=== PATIENT | female | born 1955 | race Caucasian/White ===

== ENCOUNTER 2024-09-10 08:36 | Emergency (ER) | payer MEDICARE ==
[~2024-09-10] VITALS: Ht 160 cm; Wt 104.3 kg
[2024-09-10 09:14] LABS: BASOPHILS ABSOLUTE AUTO 0.04 K/mm3 (0.00-0.23); BASOPHILS PERCENT AUTO 0 % (0-2); EOSINOPHILS ABSOLUTE AUTO 0.12 K/mm3 (0.00-0.68); EOSINOPHILS PERCENT AUTO 1 % (0-6); Hematocrit 36.8 % (33.0-51.0); IMMATURE GRAN ABSOLUTE AUTO 0.05 K/mm3 (0.00-0.10); IMMATURE GRAN PERCENT AUTO 0 % (0-1); LYMPHOCYTES ABSOLUTE AUTO 0.93 K/mm3 (0.84-5.20); LYMPHOCYTES PERCENT AUTO 8 % (21-46); MONOCYTES ABSOLUTE AUTO 0.65 K/mm3 (0.16-1.47); MONOCYTES PERCENT AUTO 6 % (4-13); Mean Corpuscular HGB 25.3 pg (26.0-34.0); Mean Corpuscular HGB Conc 29.9 g/dL (31.5-36.5); Mean Corpuscular Volume 85 fL (80-100); Mean Platelet Volume 8.7 fL (9.1-12.4); NEUTROPHILS ABSOLUTE AUTO 9.79 K/mm3 (1.96-9.15); NEUTROPHILS PERCENT AUTO 85 % (41-73); Platelet Count 439 K/mm3 (150-400); RDW Coefficient Variation 15.6 % (11.7-14.2); RDW Standard Deviation 47.8 fL (35.1-46.3); Red Blood Cell Count 4.35 M/mm3 (3.80-5.20); White Blood Cell Count 11.58 K/mm3 (4.00-11.30)
[2024-09-10] MEDS ORDERED: Ipratropium/Albuterol SulF 2.5-0.5MG/3 ML Amp INH ONE (09:25)
[2024-09-10 09:33] LABS: Albumin, Blood 3.2 g/dL (3.4-5.0); Albumin/Globulin Ratio 0.9 (0.8-1.8); Bilirubin, Total 0.3 mg/dL (0.1-1.0); Bun/Creatinine Ratio 13.9 (12.0-20.0); Calcium, Blood 9.1 mg/dL (8.5-10.1); Creatinine, Blood 1.01 mg/dL (0.40-1.00); Globulin, Blood 3.5 g/dL (2.2-4.0); Potassium, Blood 4.2 mmol/L (3.5-5.5); Total Protein, Blood 6.7 g/dL (6.4-8.2)
[2024-09-10 10:24] LABS: Influenza A, PCR NEGATIVE (NEGATIVE); Influenza B, PCR NEGATIVE (NEGATIVE); Resp Syncytial Virus, PCR NEGATIVE (NEGATIVE); SARS-Cov-2 (COVID-19) PCR, MMC NEGATIVE (NEGATIVE)
[2024-09-10] MEDS ORDERED: Furosemide 10 MG / ML 2ML Vial IV ONE (10:35)
[2024-09-10] MEDS ORDERED: ALBU90OI INH (12:13)
[2024-09-10] MEDS ORDERED: OXYACE7.5T PO (12:13)
[2024-09-10] MEDS ORDERED: FURO40 PO (12:13)
== END 2024-09-10 13:00 | disposition home or self-care (01) ==
LOC: ER 08:36
PROVIDERS: Student in an Organized Health Care Education/Training Program
DX: I11.0 Hypertensive heart disease with heart failure (principal); I50.9 Heart failure, unspecified; J44.1 Chronic obstructive pulmonary disease with (acute) exacerbation; M54.9 Dorsalgia, unspecified; G89.29 Other chronic pain; E11.51 Type 2 diabetes mellitus with diabetic peripheral angiopathy without gangrene; I87.2 Venous insufficiency (chronic) (peripheral); M06.9 Rheumatoid arthritis, unspecified; Z87.891 Personal history of nicotine dependence; Z98.1 Arthrodesis status; Z88.0 Allergy status to penicillin; Z79.891 Long term (current) use of opiate analgesic
CPT/HCPCS: 0241U; 71046; 80053; 83880; 84484; 85025; 93005; 93010; 93970; 94640; 94664; 96374; 99285-25; J1940

== ENCOUNTER 2024-10-15 19:34 | Inpatient (IN) | payer MEDICARE ==
[~2024-10-15] VITALS: Ht 160 cm; Wt 92.0 kg
[~2024-10-15 19:34] MED LIST: ALBU90OI INH; FURO40 PO; OXYACE7.5T PO
[2024-10-15 21:42] LABS: BASOPHILS ABSOLUTE AUTO 0.09 K/mm3 (0.00-0.23); BASOPHILS PERCENT AUTO 1 % (0-2); EOSINOPHILS ABSOLUTE AUTO 0.04 K/mm3 (0.00-0.68); EOSINOPHILS PERCENT AUTO 0 % (0-6); Hematocrit 36.4 % (33.0-51.0); Hemoglobin 10.8 g/dL (11.5-16.0); IMMATURE GRAN ABSOLUTE AUTO 0.09 K/mm3 (0.00-0.10); IMMATURE GRAN PERCENT AUTO 1 % (0-1); LYMPHOCYTES PERCENT AUTO 6 % (21-46); MONOCYTES ABSOLUTE AUTO 1.84 K/mm3 (0.16-1.47); MONOCYTES PERCENT AUTO 11 % (4-13); Mean Corpuscular HGB 24.7 pg (26.0-34.0); Mean Corpuscular HGB Conc 29.7 g/dL (31.5-36.5); Mean Corpuscular Volume 83 fL (80-100); Mean Platelet Volume 8.5 fL (9.1-12.4); NEUTROPHILS ABSOLUTE AUTO 14.42 K/mm3 (1.96-9.15); NEUTROPHILS PERCENT AUTO 83 % (41-73); Platelet Count 488 K/mm3 (150-400); RDW Coefficient Variation 16.3 % (11.7-14.2); RDW Standard Deviation 49.6 fL (35.1-46.3); Red Blood Cell Count 4.37 M/mm3 (3.80-5.20); White Blood Cell Count 17.48 K/mm3 (4.00-11.30)
[2024-10-15 21:59] LABS: Albumin, Blood 2.6 g/dL (3.4-5.0); Albumin/Globulin Ratio 0.6 (0.8-1.8); Bilirubin, Total 0.3 mg/dL (0.1-1.0); Bun/Creatinine Ratio 26.9 (12.0-20.0); Calcium, Blood 9.3 mg/dL (8.5-10.1); Creatinine, Blood 1.6 mg/dL (0.40-1.00); Globulin, Blood 4.6 g/dL (2.2-4.0); Potassium, Blood 4.7 mmol/L (3.5-5.5); Total Protein, Blood 7.2 g/dL (6.4-8.2)
[2024-10-15 23:22] LABS: Source, Urine Fem Cath
[2024-10-15 23:25] LABS: Bilirubin, Urine Neg (Neg); Blood, Urine 3+ (Neg); Glucose Qualitative, Urine Neg (Neg); Ketones, Urine Neg (Neg); Leukocyte Esterase, Urine 3+ (Neg); Nitrite, Urine Pos (Neg); Protein, Urine 3+ (Neg); Urobilinogen, Urine NORM (Normal)
[2024-10-15 23:31] LABS: Appearance, Urine Turbid (Clear)
[2024-10-15 23:34] LABS: Bacteria Many /hpf; Red Blood Cells, Urine 0-2 /hpf (0-2); Squamous Epithelial Cells Few /hpf (Few); White Blood Cells, Urine TNTC /hpf (0-5)
[2024-10-15 23:35] LABS: Color, Urine Other (P-Yellow)
[2024-10-16] MEDS ORDERED: NS 1,000 ML IV SCH ×2 (00:10→00:40)
[2024-10-16] MEDS ORDERED: Cefepime HCl 2,000 MG in NS 100 ML IV ONE (00:10)
[2024-10-16] MEDS ORDERED: Vancomycin HCL 2,000 MG in NS 500 ML IV ONE (00:40)
[2024-10-16] MEDS ORDERED: Acetaminophen 325 MG TABLET PO PRN (00:40)
[2024-10-16] MEDS ORDERED: Ondansetron HCl 2 MG / ML 2ML Vial IV PRN (00:40)
[2024-10-16] MEDS ORDERED: FLU VACC TS2024-25(6MOS UP)/PF 45 MCG/0.5 ML SYRINGE IM ONE (00:40)
[2024-10-16] MEDS ORDERED: FentaNYL Citrate 50 MCG/ML 2 ML Injection IV PRN (00:45)
[2024-10-16] MEDS ORDERED: Albumin (Human) 25gm/100ml 100 ML IV ONE (02:05)
[2024-10-16] MEDS ORDERED: Sodium Phosphate 30 MM in Dextrose 5% 500 ML IV STA (02:09)
[2024-10-16] MEDS ORDERED: Nystatin 100,000 Units/GM Powder 15 gm TOP PRN (02:15)
[2024-10-16 03:19] LABS: Influenza A, PCR NEGATIVE (NEGATIVE); Influenza B, PCR NEGATIVE (NEGATIVE); Resp Syncytial Virus, PCR NEGATIVE (NEGATIVE); SARS-Cov-2 (COVID-19) PCR, MMC NEGATIVE (NEGATIVE)
[2024-10-16] MEDS ORDERED: Enoxaparin 40 MG/0.4 ML SYR SC SCH (09:00)
[2024-10-16] MEDS ORDERED: Ipratropium/Albuterol SulF 2.5-0.5MG/3 ML Amp INH PRN (09:30)
[2024-10-16 10:56] LABS: BASOPHILS ABSOLUTE AUTO 0.05 K/mm3 (0.00-0.23); BASOPHILS PERCENT AUTO 0 % (0-2); EOSINOPHILS ABSOLUTE AUTO 0.03 K/mm3 (0.00-0.68); EOSINOPHILS PERCENT AUTO 0 % (0-6); IMMATURE GRAN ABSOLUTE AUTO 0.07 K/mm3 (0.00-0.10); IMMATURE GRAN PERCENT AUTO 0 % (0-1); LYMPHOCYTES ABSOLUTE AUTO 0.99 K/mm3 (0.84-5.20); LYMPHOCYTES PERCENT AUTO 6 % (21-46); MONOCYTES ABSOLUTE AUTO 1.75 K/mm3 (0.16-1.47); MONOCYTES PERCENT AUTO 11 % (4-13); Mean Corpuscular HGB 24.7 pg (26.0-34.0); Mean Corpuscular Volume 82 fL (80-100); Mean Platelet Volume 8.8 fL (9.1-12.4); NEUTROPHILS ABSOLUTE AUTO 12.81 K/mm3 (1.96-9.15); NEUTROPHILS PERCENT AUTO 82 % (41-73); Platelet Count 437 K/mm3 (150-400); RDW Coefficient Variation 16.2 % (11.7-14.2); RDW Standard Deviation 49.6 fL (35.1-46.3); Red Blood Cell Count 3.64 M/mm3 (3.80-5.20)
[2024-10-16 11:55] LABS: Albumin, Blood 2.7 g/dL (3.4-5.0); Albumin/Globulin Ratio 0.7 (0.8-1.8); Bilirubin, Total 0.3 mg/dL (0.1-1.0); Bun/Creatinine Ratio 27.5 (12.0-20.0); Calcium, Blood 8.5 mg/dL (8.5-10.1); Creatinine, Blood 1.31 mg/dL (0.40-1.00); Globulin, Blood 3.7 g/dL (2.2-4.0); Potassium, Blood 3.7 mmol/L (3.5-5.5); Total Protein, Blood 6.4 g/dL (6.4-8.2)
[2024-10-16] MEDS ORDERED: CefTRIAXone Sodium 1,000 MG in NS 100 ML IV SCH (12:00)
--- NOTE | 2024-10-16 14:27 | NUR ---
RECIEVED REPORT FROM EPI
--- NOTE | 2024-10-16 18:54 | NUR ---
SHIFT SUMMARY PT AOX4, COOPERATIVE, ABLE TO MAKE NEEDS KNOWN. PT ARRIVED ON FLOOR APPROXIMATELY 1500. PT IS HARD OF HEARING. NEEDS MED REC COMPLETED, WILL PASS OFF TO JUNIOR ACCOUNTANT. PT HAS HARD TIME TURNING IN BED DUE TO "FEAR OF FALLING ALL BED RESULTING IN PTSD." EKG WASA PERFORMED PER IMPLEMENTATION LEAD, IN PAPER CHART. PURE WICK ACTIVE. MULTIPLE SKIN PROBLEMS NOTED. 2ND RN WAS KAREN BAILEY, AND PICS ARE IN CHART. BED IN LOWEST POSITION, CALL LIGHT WITHIN REACH.
[2024-10-16 20:20] VITALS: BP 162/62
[2024-10-16] MEDS ORDERED: Miconazole Nitrate 2% 85 GM PWD TOP PRN (20:35)
[2024-10-16] MEDS ORDERED: Insulin Human Lispro 100 Units/ML 3ML Syringe SC SCH (21:00)
[2024-10-16] MEDS ORDERED: POTA10T PO (21:16)
[2024-10-16] MEDS ORDERED: FERSU300 PO (21:17)
[2024-10-16] MEDS ORDERED: LEFL20 PO (21:17)
[2024-10-16] MEDS ORDERED: METF500 PO (21:18)
[2024-10-16] MEDS ORDERED: METO25ER PO (21:18)
[2024-10-16] MEDS ORDERED: ATOR10 PO (21:18)
[2024-10-16] MEDS ORDERED: GLIP5 PO (21:19)
[2024-10-16] MEDS ORDERED: SERT50 PO (21:19)
[2024-10-16] MEDS ORDERED: VERA240ER PO (21:21)
[2024-10-16] MEDS ORDERED: PARO20 PO (21:22)
[2024-10-16] MEDS ORDERED: OMEP20ER PO (21:22)
[2024-10-16] MEDS ORDERED: ZYRTEC10 M2 PO (21:23)
[2024-10-16] MEDS ORDERED: VALS80 PO (21:23)
[2024-10-16] MEDS ORDERED: BUDESONIDE0.5 MG/2 M INH (21:23)
[2024-10-16] MEDS ORDERED: FOLI1 PO (21:24)
[2024-10-16 23:24] VITALS: BP 138/71
[2024-10-17 03:54] VITALS: BP 136/60
[2024-10-17 05:13] LABS: Hematocrit 29.7 % (33.0-51.0); Hemoglobin 8.9 g/dL (11.5-16.0); Mean Corpuscular HGB 24.6 pg (26.0-34.0); Mean Corpuscular Volume 82 fL (80-100); Mean Platelet Volume 8.6 fL (9.1-12.4); Platelet Count 420 K/mm3 (150-400); RDW Coefficient Variation 16.2 % (11.7-14.2); RDW Standard Deviation 48.9 fL (35.1-46.3); Red Blood Cell Count 3.62 M/mm3 (3.80-5.20); White Blood Cell Count 10.65 K/mm3 (4.00-11.30)
[2024-10-17 05:37] LABS: Albumin, Blood 2.2 g/dL (3.4-5.0); Anion Gap 9 mmol/L (3-11); Blood Urea Nitrogen 27 mg/dL (8-24); Bun/Creatinine Ratio 27.9 (12.0-20.0); CO2, Blood 22 mmol/L (21-32); Calcium, Blood 8.6 mg/dL (8.5-10.1); Chloride, Blood 112 mmol/L (98-108); Creatinine, Blood 0.97 mg/dL (0.40-1.00); Glomerular Filtration Rate 63 (60-); Glucose, Blood 100 mg/dL (70-99); Phosphorus, Blood 3.6 mg/dL (2.5-4.9); Potassium, Blood 3.4 mmol/L (3.5-5.5); Sodium, Blood 140 mmol/L (136-145)
--- NOTE | 2024-10-17 06:41 | NUR ---
Shift Summary Pt is AOx4, here for Sepsis r/t skin infections and UTI. Pt has significant skin breakdown on BLE, dressing placed are C/D/I. I called the hospitalist for wound care orders but he wanted pt's day shift doctor to examine her many wounds and put in the orders today. No c/o of pain. Pt is very wheezy and tachypneic ~28 bpm, I called RT to request a breathing treatment this AM. Pt also appears to gasp constantly in her sleep and sometimes while awake. She states this is normal for her.
[2024-10-17 08:11] VITALS: BP 102/74
[2024-10-17] MEDS ORDERED: NS 250 ML IV PRN (12:20)
--- NOTE | 2024-10-17 12:23 | NUR ---
Spiritual Care Visit. Pt. is awake and welcomed my visit. Pt. is pleasant. Facilitated a life review and considered matters of jayden and belief. Pt. verbalized that she is new to the area and is in need of a PCP. Prayed with the Pt. Pt. verbalized gratitude for the spiritual care visit and welcomed this dust control engineer to return.
[2024-10-17 13:13] VITALS: BP 178/78
[2024-10-17] MEDS ORDERED: OxyCODONE 7.5 mg/Acetam 325 mg TABLET PO PRN (13:55)
[2024-10-17] MEDS ORDERED: Azithromycin 250 MG Tab PO SCH (14:00)
[2024-10-17] MEDS ORDERED: Potassium Chloride 10 Meq Tablet SA PO SCH (14:00)
[2024-10-17] MEDS ORDERED: Albuterol HFA200 ACT/6.7 GM INH INH PRN (14:05)
[2024-10-17] MEDS ORDERED: Budesonide 0.5 MG/2 ML RESP INH SCH (14:05)
[2024-10-17 17:27] VITALS: BP 153/69
--- NOTE | 2024-10-17 17:57 | NUR ---
SHIFT SUMMARY PT AOX4, COOPERATIVE, ABLE TO MAKE NEEDS KNONW. PT HAS REMAINED IN BED FOR DURATION OF SHIFT. PURE WICK ACTIVE. ON ROOM AIR, IV PATENT. PERFORMED WOUND CARE PER ORDER. INFORMED SLASHER RUNNER SHOULD WORK WITH THERAPY TOMORROW. CONFISCATED VAPING DEVICE FROM PT, IN LOCKBOX. BED IN LOWEST POSITION, CALL LIGHT WITHIN REACH.
[2024-10-17 20:09] VITALS: BP 128/56
[2024-10-17] MEDS ORDERED: Verapamil HCL 240 MG TABCR PO SCH (21:00)
[2024-10-17 23:15] VITALS: BP 134/69
[2024-10-18 04:50] LABS: BASOPHILS ABSOLUTE AUTO 0.04 K/mm3 (0.00-0.23); BASOPHILS PERCENT AUTO 0 % (0-2); EOSINOPHILS ABSOLUTE AUTO 0.34 K/mm3 (0.00-0.68); EOSINOPHILS PERCENT AUTO 3 % (0-6); Hematocrit 30.7 % (33.0-51.0); Hemoglobin 9.1 g/dL (11.5-16.0); IMMATURE GRAN ABSOLUTE AUTO 0.19 K/mm3 (0.00-0.10); IMMATURE GRAN PERCENT AUTO 2 % (0-1); LYMPHOCYTES ABSOLUTE AUTO 1.27 K/mm3 (0.84-5.20); LYMPHOCYTES PERCENT AUTO 12 % (21-46); MONOCYTES PERCENT AUTO 12 % (4-13); Mean Corpuscular HGB 24.3 pg (26.0-34.0); Mean Corpuscular HGB Conc 29.6 g/dL (31.5-36.5); Mean Corpuscular Volume 82 fL (80-100); Mean Platelet Volume 8.5 fL (9.1-12.4); NEUTROPHILS ABSOLUTE AUTO 7.25 K/mm3 (1.96-9.15); NEUTROPHILS PERCENT AUTO 71 % (41-73); Platelet Count 420 K/mm3 (150-400); Red Blood Cell Count 3.75 M/mm3 (3.80-5.20); White Blood Cell Count 10.29 K/mm3 (4.00-11.30)
[2024-10-18 05:06] LABS: Bun/Creatinine Ratio 20.1 (12.0-20.0); Calcium, Blood 8.7 mg/dL (8.5-10.1); Creatinine, Blood 0.9 mg/dL (0.40-1.00); Potassium, Blood 3.2 mmol/L (3.5-5.5)
[2024-10-18 05:19] VITALS: BP 114/48
--- NOTE | 2024-10-18 05:30 | NUR ---
SHIFT SUMMARY: PT AOX4, NISQUALLY SOME CONFUSION, EASILY REORIENTED. WOUNDS WERE CDI, WOUNDS UNDER BREASTS FUNGAL POWDER USED. PT EXPERIENCING SOME PAIN, MEDICATED PER EMR. PT PLEASANT AND COOPERATIVE IN CARE. PURE WICK IN PLACE DUE TO EXCORIATION ON BOTTOM AND RODO AREA. HAVING GOOD OUTPUT. TOLERATING MEDICATIONS WELL. NO ACUTE EVENTS OVERNIGHT. PT RESTING IN BED, BED IN LOWEST POSITION, CALL LIGHT IN REACH. CONTINUING CARE.
[2024-10-18] MEDS ORDERED: Omeprazole 20 MG CapCR PO SCH (06:00)
[2024-10-18 08:01] VITALS: BP 129/58
[2024-10-18] MEDS ORDERED: Losartan Potassium 50 MG Tab PO SCH (09:00)
[2024-10-18] MEDS ORDERED: Ferrous Sulfate 325 MG Tab PO SCH (09:00)
[2024-10-18] MEDS ORDERED: Metoprolol Succinate 25 MG TABCR PO SCH (09:00)
[2024-10-18] MEDS ORDERED: Furosemide 40 MG Tab PO SCH (09:00)
[2024-10-18] MEDS ORDERED: PARoxetine HCl 20 MG Tab PO SCH (09:00)
[2024-10-18] MEDS ORDERED: Sertraline HCl 50 MG Tab PO SCH (09:00)
[2024-10-18] MEDS ORDERED: Atorvastatin 10 MG Tab PO SCH (09:00)
[2024-10-18] MEDS ORDERED: Loratadine 10 MG Tab PO SCH (09:00)
[2024-10-18] MEDS ORDERED: Potassium Chloride 10 Meq Tablet SA PO SCH (11:00)
[2024-10-18] MEDS ORDERED: Fluconazole 100 MG Tab PO ONE (12:20)
[2024-10-18] MEDS ORDERED: Miconazole Nitrate 2% 85 GM PWD TOP SCH (14:00)
--- NOTE | 2024-10-18 15:30 | NUR ---
REVIEWED GUM PULLER DOCUMENTATION; MADE EDITS TO ASSESSMENTS APPROPRIATELY AND GAVE REASON OR REASSESSED PRIOR TO CHANGES.
[2024-10-18 15:36] VITALS: BP 108/63
--- NOTE | 2024-10-18 16:49 | NUR ---
SHIFT SUMMARY: PATIENT IS A&OX4, PLEASANT AND COOPERATIVE WITH CARE,TWO PERSON MAX ASSIST WITH CARE/BEDREST; PENDING PT/OT EVALUATION. UNABLE TO GET EVALUATED TODAY;WILL ATTEMPT AGAIN TOMORROW 10/19/24. PATIENT RECEIVING IV ANTIBIOTICS; POSITIVE E COLI URINE CULTURE. PATIENT USING PUREWICK SYSTEM FOR URINARY INCONTINENCE. WOUND CARE PERFORMED ON PATIENT THIS AFTERNOON; AREAS CLEANSED AND DRESSED/TREATED: BOTTOM(R SIDE), INNER THIGHS, UNDER BREASTS, ARMPITS, AND BLE. PATIENT IN BED, CALL LIGHT WITHIN REACH, NO SIGNS OR SYMPTOMS OF DISTRESS, NO EVENTS ON TELE, PLAN OF CARE ONGOING.
[2024-10-18 19:42] VITALS: BP 104/58
[2024-10-19 04:13] VITALS: BP 111/53
--- NOTE | 2024-10-19 04:54 | NUR ---
SHIFT SUMMARY: PT AOX4 WITH SOME CONFUSION, EASILY REDIRECTABLE ABLE TO MAKE NEEDS KNOWN AND CALLS APPROPRIATELY. PT TOLERATING MEDICATIONS WELL AND ALLOWING SOME TURNS BUT REFUSING OTHERS. DURING A BRIEF CHANGE, TOWER SUPERVISOR FOUND A VAPE IN THE BED. PT EDUCATED ONTHE POLICY AND VAPE PLACED IN DRAWER OUTSIDE. PAIN MANAGED WELL PER EMR. PT PLEASANT AND IN GOOD MOOD. ANXIOUS ABOUT SEEING CASE MGMT AND PT/OT. NO ACUTE EVENTS OVERNIGHT. PT IN BED SLEEPING, CALL LIGHT IN REACH, CONTINUING CARE.
[2024-10-19 05:28] LABS: Bun/Creatinine Ratio 22.1 (12.0-20.0); Calcium, Blood 8.6 mg/dL (8.5-10.1); Creatinine, Blood 0.95 mg/dL (0.40-1.00); Potassium, Blood 3.7 mmol/L (3.5-5.5)
[2024-10-19 07:31] VITALS: BP 99/57
[2024-10-19] MEDS ORDERED: Losartan Potassium 25 MG Tab PO SCH (09:00)
[2024-10-19 10:04] VITALS: BP 122/61
[2024-10-19] MEDS ORDERED: Morphine Sulfate 4 MG/1 ML Injection IV PRN (13:55)
[2024-10-19] MEDS ORDERED: Magnesium Hydroxide Conc 10 ML UDC PO PRN (13:55)
[2024-10-19] MEDS ORDERED: Bisacodyl 10 MG Supp PR PRN (13:55)
[2024-10-19] MEDS ORDERED: Clarify Drug Order XX ONE (14:05)
--- NOTE | 2024-10-19 16:25 | NUR ---
Spiritual Care Visit. With evidence of great faheem the Pt. welcomed my visit. Pt. verbalized that she had hoped I would visit. Facilitated an update. Pt. verbalized a hope that she would be discharged after her sepsis clears. Pt. displayed evidence of wanting more spiritual growth opportunities after discharge and she is excited to visit a local islam. Prayed with the Pt. Pt. verbalized gratitude for the spiritual life visit.
[2024-10-19 19:22] VITALS: BP 128/81
--- NOTE | 2024-10-19 19:43 | NUR ---
no acute changes this shift. bed bath given and wound care provided as ordered. treated pain per emar. bed rest with q 2hour turns, pt requires assistance with turning. alert and oriented x4, able to express needs. plan for patient to go home with home health. pt is set up for new pcp appointment 10/25. unable to start home health until then.
[2024-10-19] MEDS ORDERED: Sennosides 8.6 MG Tab PO SCH (21:00)
[2024-10-19] MEDS ORDERED: Docusate Sodium 100 MG Cap PO SCH (21:00)
[2024-10-20 01:28] VITALS: BP 112/51
[2024-10-20 03:48] VITALS: BP 123/59
--- NOTE | 2024-10-20 04:40 | NUR ---
SHIFT SUMMARY: PT AOX4 WITH SOME CONFUSION. EASILY REORIENTED. SLEPT WELL THROUGH THE NIGHT, CLAIMS FEELING FATIGUED. WOUND DRESSINGS CDI. PAIN MEDICATED PER EMR. PT COMFORTABLE IN BED AND REFUSED TURNS MOST OF THE NIGHT. PLEASANT MOOD AND AFFECT, COOPERATIVE IN CARE. NO ACUTE EVENTS OVERNIGHT. PT IN BED RESTING, BED IN LOWEST POSITION, CALL LIGHT IN REACH. CONTINUING CARE.
[2024-10-20 07:10] VITALS: BP 107/63
[2024-10-20 15:22] VITALS: BP 137/65
--- NOTE | 2024-10-20 17:06 | NUR ---
SHIFT SUMMARY: PATIENT IS A&PX4/2 PERSON ASSIST, SHE DID WORK WITH PHYSICAL THERAPY TODAY AND WAS ABLE TO SIT AT EDGE OF BED AND STAND. PATIENT IS NOW OPEN TO GOING TO A SNF AFTER TODAY. MENTIONED TODAY WOUND CARE TO THE PATIENT AND SHE REQUESTED THAT IT BE DONE THIS EVENING DUE IT BEING DONE LATER IN THE DAY YESTERDAY. PATIENT COTINUES TO C/O PAIN IN HER LOWER EXTREMITIES. SHE IS IN BED, SLEEPING, RESPIRATIONS EVEN AND UNLABORED, CALL LIGHT WITHIN REACH, NO SIGNS OR SYMPTOMS OF DISTRESS, PLAN OF CARE ONGOING. INFORMATION ON PCP'S PROVIDED TO THE PATIENT TO LOOK FOR A PCP.
--- NOTE | 2024-10-20 19:13 | NUR ---
WOUND CARE AND DRESSING CHANGES COMPLETED ON BOTTOM (R) AND INNER THIGHS.
[2024-10-20 20:19] VITALS: BP 119/72
[2024-10-20 23:38] VITALS: BP 127/66
[2024-10-21] MEDS ORDERED: HydrOXYzine Pamoate 50 MG Cap PO PRN (02:15)
--- NOTE | 2024-10-21 03:15 | NUR ---
SURVEY QUESTIONNAIRE DESIGNER SUMMARY: PT A&O X4. MAKES NEEDS KNOWN. MEDICATED X2 WITH PRN PAIN MEDS PER EMAR ORDERS. NEW ORDER OBTAINED FOR OBSERVED ITCHING. 2 PERSON ASSIST WITH BED MOBILITY. NO ACUTE EVENTS T/O SHIFT. CALL LIGHT IN REACH. CARES ONGOING ORDERED.
[2024-10-21 03:56] VITALS: BP 109/63
[2024-10-21 07:56] VITALS: BP 135/53
[2024-10-21] MEDS ORDERED: CeFAZolin Sodium 2,000 MG in NS 100 ML IV SCH (08:05)
[2024-10-21] MEDS ORDERED: MetFORMIN HCl 500 mg PO SCH (17:00)
--- NOTE | 2024-10-21 19:04 | NUR ---
assumed care of pt a/o x 4 makes needs known call light within reach. uneventful today, spoke with pt several times about turning a pt refused to turn to one side or another, pt stated she was too afraid too fall off the bed, even with assurences she would not allow me to move her or even dangle at bedside. pt did allow me to change dressing to lower extremities, changed per orders. charge nurse and aid helped change and turn pt once i was not in room. pt is aware that she might be discharged tomorrow and states she is looking forward to rehab and getting chely
[2024-10-21 20:31] VITALS: BP 82/52
[2024-10-21 21:36] VITALS: BP 115/69
[2024-10-22 00:18] VITALS: BP 127/85
[2024-10-22 03:45] VITALS: BP 102/54
--- NOTE | 2024-10-22 03:46 | NUR ---
CLINICAL SERVICES SPECIALIST SUMMARY: PT A&O X4, MAKES NEEDS KNOWN. NO ACUTE CHANGES / DISTRESS NOTED T/O SHIFT. 2 PERSON ASSIST WITH BED MOBILITY, TURN Q2H SCHEDULE IN PLACE. PT TO D/C TO SNF TUESDAY. CALL LIGHT IN REACH. CARES CONTINUE ORDERED.
[2024-10-22 05:23] LABS: Bun/Creatinine Ratio 17.3 (12.0-20.0); Calcium, Blood 8.6 mg/dL (8.5-10.1); Creatinine, Blood 1.04 mg/dL (0.40-1.00); Potassium, Blood 3.8 mmol/L (3.5-5.5)
[2024-10-22 07:19] VITALS: BP 143/71
[2024-10-22] MEDS ORDERED: OxyCODONE 10/Acetamin 325 TABLET PO PRN (09:30)
[2024-10-22 16:04] VITALS: BP 124/57
[2024-10-22 19:13] VITALS: BP 150/69
[2024-10-22 23:26] VITALS: BP 117/67
[2024-10-23 04:37] VITALS: BP 124/59
--- NOTE | 2024-10-23 05:10 | NUR ---
SHIFT SUMMARY: PT A&OX4. NO ACUTE EVENTS T/O SHIFT. X1 ASSIST. ON RA. MEDICATED X1 FOR PAIN PER EMAR ORDERS; EFFECTIVE. BED IN LOWEST POSITION. CALL LIGHT IN REACH. CARES ON GOING ORDERED/
[2024-10-23 07:18] VITALS: BP 135/66
--- NOTE | 2024-10-23 15:19 | NUR ---
Spiritual Care Visit. Pt. is awake in bed when she welcomed my visit. Pt. displayed evidence of being in great discomfort, and requestedthis production artist to notify her nurse. Prayed for Pt. Pt. verbalized gratitude for the spiritual care support. Pt. verbalized that she has been helped. Notified the attending nurse.
[2024-10-23 16:02] VITALS: BP 145/61
--- NOTE | 2024-10-23 18:41 | NUR ---
SUMMARY- AAOX3-4. FORGETFUL. X1-2 ASSIST.PAIN WELL CONTROLLED WITH EMAR MEDS. PT ON RA. ALL WOUND DRESSINGS CHANGED THIS SHIFT PER ORDER.
[2024-10-23 21:35] VITALS: BP 113/68
[2024-10-24 00:41] VITALS: BP 110/46
--- NOTE | 2024-10-24 04:54 | NUR ---
SHIFT SUMMARY ADMITTED FOR BLE WOUNDS/SEPSIS. FULL CODE. IV ANTIB ARE SCHEDULED. PLAN IS FOR DC TO SNF, FOLLOWING INSURANCE AUTHORIZATION. TELEMETRY: NSR @ 81 BPM. DAILY AND PRN DRESSING CHANGES. BLE WOUNDS, THIGH WOUND, EXCORIATED SKIN UNDER BREASTS AND IN ARMPITS. A&O X2-3, AT NIGHT. ACHS CBG'S - LOW SS. 1 ASSIST TO BSC - MOVES SLOWLY.
[2024-10-24 05:42] VITALS: BP 148/68
[2024-10-24 08:05] VITALS: BP 139/76
[2024-10-24 11:57] VITALS: BP 94/60
[2024-10-24 16:21] VITALS: BP 101/54
--- NOTE | 2024-10-24 17:53 | NUR ---
NO ACUTE CHANGES THIS SHIFT. PT HAS BEEN DROWSY BUT AROUSABLE. SHE STATES THAT SHE DID NOT GET MUCH SLEEP LAST NIGHT. PT UP TO SHOWER TODAY AND UP IN CHAIR FOR LUNCH. TOLORATED WELL. WOUND CARE PROVIDED ORDERED. TREATED BACK PAIN AND BLE PAIN PER EMAR. 1 ASSIST WITH FWW. ABLE TO EXPRESS NEEDS
[2024-10-24 19:58] VITALS: BP 118/60
[2024-10-25 00:17] VITALS: BP 89/58
--- NOTE | 2024-10-25 04:24 | NUR ---
SHIFT SUMMARY ADMITTED FOR BLE WOUNDS/SEPSIS. FULL CODE. IV ANTIB RX. PLAN IS FOR DC TO SNF WHEN INSURANCE AUTHORIZES. SKIN EXCORIATIONS AND BLE WOUNDS ARE IMPROVING. DAILY AND PRN DRESSING CHANGES. SHE IS A&O X2-3, AT NIGHT. ON RA. ADA DIET. ACHS CBG'S - LOW SS. TELEMETRY: NSR @ 72 BPM. 1 ASSIST TO BSC.
[2024-10-25 04:28] VITALS: BP 104/86
[2024-10-25 08:02] VITALS: BP 111/67
--- NOTE | 2024-10-25 14:28 | NUR ---
Spiritual Care Visit. Pt. is awake and is sitting up in bed when she welcomes my visit. Facilitate a progress update. Pt. verbalizes an expectation to be discharged to a SNF either today or tomorrow. Transport Manager Annette came into the room and confrimed the Pts. expectation. Consdiered matters of jayden and [facility]. Pt. did display some mild confusion at times. Prayed with Pt. Pt. verbalized gratitude for all of the spiritual care support.
--- NOTE | 2024-10-25 18:08 | NUR ---
NO ACUTE CHANGES THIS SHIFT. PT ABLE TO EXPRESS NEEDS. 1 ASSIST WITH FWW TO CHAIR. UP FOR MEALS. PT PAIN TREATED PER EMAR. PT REFUSED WOUND CARE THIS SHIFT. EDUCATION PROVIDED ON IMPORTANCE OF KEEPING WOUND CARE SCHEDULE. PT VERBALIZED UNDERSTANDING, PT STATES THAT SHE WOULD CONSIDER WOUND CARE THIS EVENING. WILL REPORT THIS TO NOC RN. PT D/C TO SNF PENDING AUTH.
[2024-10-25 19:40] VITALS: BP 106/70
[2024-10-26 03:43] VITALS: BP 108/56
[2024-10-26 07:39] VITALS: BP 113/70
--- NOTE | 2024-10-26 12:39 | NUR ---
PALLIATIVE CARE NOTE: DISCUSSED SYMPTOM MANAGEMENT WITH PATIENT TODAY. SHE STATED SHE FEELS LIKE SHE IS GOING THROUGH NICOTINE WITHDRAWALS ALTHOUGH SHE QUIT SMOKING A FEW YEARS AGO. SHE WANTS TO KNOW IF SHE CAN HAVE A NICOTINE PATCH TO HELP WITH HER ANXIETY SHE IS FEELING. WILL NOTIFY MD OF PT REQUEST. PATIENT GOT A TEXT MESSAGE IN THE MIDDLE OF OUR CONVERSATION AND REQUESTED THIS RN TO COME BACK LATER. SHE STATED SHE NEEDED TO DEAL WITH SOMETHING PERSONAL.
[2024-10-26] MEDS ORDERED: MICONAZOLE NITR85 GM TOP (15:49)
[2024-10-26 16:40] VITALS: BP 117/65
--- NOTE | 2024-10-26 18:37 | NUR ---
SHIFT SUMMARY PT IS A/OX4. 1 PERSON ASSIST TO THE BATHROOM. PT REFUSING DRESSING CHANGE TO THE DRESSINGS TO THE BLE AND MEPILEX TO THE INNER THIGH. PT ALSO REFUSING MICONAZOLE POWDER. PT UP IN CHAIR THROUGHOUT THIS SHIFT. PT MEDICATED FOR PAIN TO THE BLE AND CHRONIC BACK PAIN PER OCT. EXPECTED TO DISCHARGE TO [facility] THIS AFTERNOON. DISCHARGE ORDERED IN AND COMPLETED. [facility] UNABLE TO RECIEVE PT AT THIS TIME, SEE CASE MANAGEMENT NOTE. PT IS OFTEN ANXIOUS AND BUSY WITH HER PHONE. CALLS APPROPRIATE USING THE CALL LIGHT.
[2024-10-26 19:41] VITALS: BP 124/56
[2024-10-27 03:45] VITALS: BP 121/72
--- NOTE | 2024-10-27 04:28 | NUR ---
SHIFT SUMM: PT IS A 69 YO FULL CODE WHO WAS ADMITTED FOR SEPSIS. PT HAS BEEN RELAXING IN THE CHAIR THE WHOLE SHIFT. I HAVE OFFERED TO TAKE THE PT TO BED MULTIPLE TIMES BUT SHE SAYS SHE IS HAPPY SITTING IN THE CHAIR AND DOESNT WANT TO GO TO THE BED. I HAVE ATTEMPTED TO CHANGE THE DRESSINGS OF THE PATIENTS WOUNDS BUT SHE WONT LET ME CHANGE THE DRESSINGS OR APPLY DESENEX POWDER INBETWEEN PT'S FOLDS.THE PATIENT JUST SAYS SHE TO TIRED OR NOT RIGHT NOW, I HAVE EDUCATED THE PT ON THE IMPORTANCE OF KEEPING HER SKIN DRY AND CLEAN. aLSO EDUCATION ON IMPORTANCE OF CHANGING SOILED DRESSINGS ON WOUNDS AND WOUND CARE.I DID MEDICATE THE PT FOR LOWER BACK PAIN THIS SHIFT. PT HAS CALL LIGHT IN REACH AND MAKES NEEDS KNOWN.
--- NOTE | 2024-10-27 06:47 | NUR ---
PT LET ME DO WOUND CARE AND POWDER PATIENT IN BETWEEN FOLD. I COMPLETED WOUND CARE AND REWRAPPED PT'S LEGS.
[2024-10-27 07:34] VITALS: BP 127/95
[2024-10-27 15:33] VITALS: BP 94/53
--- NOTE | 2024-10-27 17:03 | NUR ---
PT DISCHARGED TO [facility], [facility] 164. CALLED REPORT TO [facility] AT 1650. MEDICATED PT WITH PERCOCET BEFORE DC FOR COMFORT.
== END 2024-10-27 16:52 | DRG 872 ==
LOC: ER 19:34 → MEDS 10-16 00:25 → ERHOLD 10-16 00:25 → MEDS 10-16 15:00
PROVIDERS: Emergency Medicine; Internal Medicine; ADMIT Internal Medicine
DX: B37.7 Candidal sepsis (principal); L97.819 Non-pressure chronic ulcer of other part of right lower leg with unspecified severity; N17.9 Acute kidney failure, unspecified; N39.0 Urinary tract infection, site not specified; E87.20 Acidosis, unspecified; L97.829 Non-pressure chronic ulcer of other part of left lower leg with unspecified severity; R65.20 Severe sepsis without septic shock; E83.39 Other disorders of phosphorus metabolism; B87.0 Cutaneous myiasis; I11.0 Hypertensive heart disease with heart failure; I50.9 Heart failure, unspecified; E11.9 Type 2 diabetes mellitus without complications; J44.9 Chronic obstructive pulmonary disease, unspecified; F32.A Depression, unspecified; M54.50 Low back pain, unspecified; B96.20 Unspecified Escherichia coli [E. coli] as the cause of diseases classified elsewhere; G89.4 Chronic pain syndrome; M06.9 Rheumatoid arthritis, unspecified; D50.9 Iron deficiency anemia, unspecified; K21.9 Gastro-esophageal reflux disease without esophagitis; Z88.0 Allergy status to penicillin; Z98.1 Arthrodesis status; Z87.891 Personal history of nicotine dependence; B37.2 Candidiasis of skin and nail; I48.0 Paroxysmal atrial fibrillation; E87.6 Hypokalemia; Z90.2 Acquired absence of lung [part of]
CPT/HCPCS: 0241U; 36415; 51701; 71046; 71260; 72131; 80048; 80053; 80069; 81001; 82947; 83605; 83735; 83880; 84100; 85025; 85027; 87040; 87077; 87086; 87186; 93005; 93010; 94640; 94664; 94760; 97110; 97116; 97161; 97165; 97530; 97535; 99285-25; A9270; J0690; J0692; J0696; J1650; J2270; J3010; J3370; J7030; J7040; J7050; J7060; P9047; Q9967

== ENCOUNTER 2024-12-07 03:11 | Day surgery (SDC) | payer MEDICARE ==
[~2024-12-07 03:11] MED LIST changes: +ATOR10 PO; +BUDESONIDE0.5 MG/2 M INH; +FERSU300 PO; +FOLI1 PO; +GLIP5 PO; +LEFL20 PO; +METF500 PO; +METO25ER PO; +MICONAZOLE NITR85 GM TOP; +OMEP20ER PO; +PARO20 PO; +POTA10T PO; +SERT50 PO; +VALS80 PO; +VERA240ER PO; +ZYRTEC10 M2 PO
[2024-12-07] MEDS ORDERED: Lidocaine HCl 4% Cream 5 GM ONE (13:59)
== END 2024-12-07 23:00 | disposition home or self-care (01) ==
LOC: WOUND 03:11
DX: L89.613 Pressure ulcer of right heel, stage 3 (principal); L97.212 Non-pressure chronic ulcer of right calf with fat layer exposed; L97.222 Non-pressure chronic ulcer of left calf with fat layer exposed; E11.621 Type 2 diabetes mellitus with foot ulcer; I87.2 Venous insufficiency (chronic) (peripheral); E11.42 Type 2 diabetes mellitus with diabetic polyneuropathy; I10 Essential (primary) hypertension; J44.9 Chronic obstructive pulmonary disease, unspecified; Z88.0 Allergy status to penicillin; Z87.891 Personal history of nicotine dependence
CPT/HCPCS: A6196; A6213; A9270; G0463

== ENCOUNTER 2024-12-14 05:07 | Day surgery (SDC) | payer MEDICARE ==
[2024-12-14] MEDS ORDERED: Lidocaine HCl 4% Cream 5 GM ONE (13:15)
== END 2024-12-14 23:00 | disposition home or self-care (01) ==
LOC: WOUND 05:07
DX: E11.621 Type 2 diabetes mellitus with foot ulcer (principal); L97.412 Non-pressure chronic ulcer of right heel and midfoot with fat layer exposed; L97.212 Non-pressure chronic ulcer of right calf with fat layer exposed; L97.222 Non-pressure chronic ulcer of left calf with fat layer exposed; I11.0 Hypertensive heart disease with heart failure; I50.9 Heart failure, unspecified; I87.2 Venous insufficiency (chronic) (peripheral); E11.51 Type 2 diabetes mellitus with diabetic peripheral angiopathy without gangrene; J44.9 Chronic obstructive pulmonary disease, unspecified
CPT/HCPCS: A6196; A6213; A9270; G0463

== ENCOUNTER 2024-12-19 03:21 | Day surgery (SDC) | payer MEDICARE ==
[2024-12-19] MEDS ORDERED: Lidocaine HCl 4% Cream 5 GM ONE (15:15)
== END 2024-12-19 23:00 | disposition home or self-care (01) ==
LOC: WOUND 03:21
DX: L89.513 Pressure ulcer of right ankle, stage 3 (principal); E11.621 Type 2 diabetes mellitus with foot ulcer; I87.2 Venous insufficiency (chronic) (peripheral); I73.9 Peripheral vascular disease, unspecified; J44.9 Chronic obstructive pulmonary disease, unspecified; I11.0 Hypertensive heart disease with heart failure; I50.9 Heart failure, unspecified
CPT/HCPCS: A6213; A9270

== ENCOUNTER 2024-12-26 05:51 | Day surgery (SDC) | payer MEDICARE ==
[2024-12-26] MEDS ORDERED: Lidocaine HCl 4% Cream 5 GM ONE (11:09)
== END 2024-12-26 23:00 ==
LOC: WOUND 05:51
DX: L89.613 Pressure ulcer of right heel, stage 3 (principal); L97.212 Non-pressure chronic ulcer of right calf with fat layer exposed; L97.222 Non-pressure chronic ulcer of left calf with fat layer exposed; I87.2 Venous insufficiency (chronic) (peripheral); E11.51 Type 2 diabetes mellitus with diabetic peripheral angiopathy without gangrene; I10 Essential (primary) hypertension; J44.9 Chronic obstructive pulmonary disease, unspecified; I11.0 Hypertensive heart disease with heart failure; I50.9 Heart failure, unspecified
CPT/HCPCS: A6213; A9270

== ENCOUNTER 2025-02-04 08:00 | Day surgery (SDC) | payer MEDICARE ==
[2025-02-04] MEDS ORDERED: Lidocaine HCl 4% Cream 5 GM ONE (15:45)
== END 2025-02-04 23:00 | disposition home or self-care (01) ==
LOC: WOUND 08:00
DX: L89.613 Pressure ulcer of right heel, stage 3 (principal); E11.621 Type 2 diabetes mellitus with foot ulcer; L97.413 Non-pressure chronic ulcer of right heel and midfoot with necrosis of muscle; L97.212 Non-pressure chronic ulcer of right calf with fat layer exposed; L97.222 Non-pressure chronic ulcer of left calf with fat layer exposed; I87.2 Venous insufficiency (chronic) (peripheral); E11.51 Type 2 diabetes mellitus with diabetic peripheral angiopathy without gangrene; I10 Essential (primary) hypertension; J44.9 Chronic obstructive pulmonary disease, unspecified
CPT/HCPCS: A6214; A9270

== ENCOUNTER 2025-02-11 05:09 | Day surgery (SDC) | payer MEDICARE ==
[2025-02-11] MEDS ORDERED: Lidocaine HCl 4% Cream 5 GM ONE (15:50)
== END 2025-02-11 23:00 | disposition home or self-care (01) ==
LOC: WOUND 05:09
DX: L89.613 Pressure ulcer of right heel, stage 3 (principal); I87.2 Venous insufficiency (chronic) (peripheral); E11.51 Type 2 diabetes mellitus with diabetic peripheral angiopathy without gangrene; I11.0 Hypertensive heart disease with heart failure; I50.9 Heart failure, unspecified; J44.9 Chronic obstructive pulmonary disease, unspecified
CPT/HCPCS: A6214; A9270; G0463

== ENCOUNTER 2025-02-25 01:27 | Day surgery (SDC) | payer MEDICARE ==
[2025-02-25] MEDS ORDERED: Lidocaine HCl 4% Cream 5 GM ONE (15:36)
== END 2025-02-25 23:00 | disposition home or self-care (01) ==
LOC: WOUND 01:27
DX: L89.513 Pressure ulcer of right ankle, stage 3 (principal); I87.2 Venous insufficiency (chronic) (peripheral); E11.51 Type 2 diabetes mellitus with diabetic peripheral angiopathy without gangrene; I11.0 Hypertensive heart disease with heart failure; I50.9 Heart failure, unspecified; J44.9 Chronic obstructive pulmonary disease, unspecified
CPT/HCPCS: A6214; A9270

== ENCOUNTER 2025-03-04 00:47 | Day surgery (SDC) | payer MEDICARE ==
[2025-03-04] MEDS ORDERED: Lidocaine HCl 4% Cream 5 GM ONE (15:14)
== END 2025-03-04 23:00 | disposition home or self-care (01) ==
LOC: WOUND 00:47
DX: E11.621 Type 2 diabetes mellitus with foot ulcer (principal); L97.413 Non-pressure chronic ulcer of right heel and midfoot with necrosis of muscle; L97.212 Non-pressure chronic ulcer of right calf with fat layer exposed; L97.222 Non-pressure chronic ulcer of left calf with fat layer exposed; I87.2 Venous insufficiency (chronic) (peripheral); I73.9 Peripheral vascular disease, unspecified; I10 Essential (primary) hypertension; J44.9 Chronic obstructive pulmonary disease, unspecified
CPT/HCPCS: A6214; A9270

== ENCOUNTER 2025-03-11 01:09 | Day surgery (SDC) | payer MEDICARE ==
[2025-03-11] MEDS ORDERED: Lidocaine HCl 4% Cream 5 GM ONE (15:12)
== END 2025-03-11 23:00 | disposition home or self-care (01) ==
LOC: WOUND 01:09
DX: L89.613 Pressure ulcer of right heel, stage 3 (principal); E11.622 Type 2 diabetes mellitus with other skin ulcer; L97.212 Non-pressure chronic ulcer of right calf with fat layer exposed; L97.222 Non-pressure chronic ulcer of left calf with fat layer exposed; I87.2 Venous insufficiency (chronic) (peripheral); E11.51 Type 2 diabetes mellitus with diabetic peripheral angiopathy without gangrene; J44.9 Chronic obstructive pulmonary disease, unspecified; I11.0 Hypertensive heart disease with heart failure; I50.9 Heart failure, unspecified
CPT/HCPCS: A6214; A9270

== ENCOUNTER → 2025-03-19 | Day surgery (SDC) | payer MEDICARE ==
[~2025-03-19] MED LIST changes: +Lidocaine HCl 4% Cream 5 GM ONE
== END ==
LOC: WOUND 04:17
DX: L89.613 Pressure ulcer of right heel, stage 3 (principal); E11.622 Type 2 diabetes mellitus with other skin ulcer; L97.222 Non-pressure chronic ulcer of left calf with fat layer exposed; I87.2 Venous insufficiency (chronic) (peripheral); E11.51 Type 2 diabetes mellitus with diabetic peripheral angiopathy without gangrene; J44.9 Chronic obstructive pulmonary disease, unspecified; I11.0 Hypertensive heart disease with heart failure; I50.9 Heart failure, unspecified
CPT/HCPCS: A6214; A9270; G0463

== ENCOUNTER 2025-04-01 00:21 | Day surgery (SDC) | payer MEDICARE ==
[~2025-04-01 00:21] MED LIST changes: -Lidocaine HCl 4% Cream 5 GM ONE
== END 2025-04-01 23:21 | disposition home or self-care (01) ==
LOC: WOUND 00:21
DX: L89.613 Pressure ulcer of right heel, stage 3 (principal); I87.2 Venous insufficiency (chronic) (peripheral); E11.51 Type 2 diabetes mellitus with diabetic peripheral angiopathy without gangrene; J44.9 Chronic obstructive pulmonary disease, unspecified; I11.0 Hypertensive heart disease with heart failure; I50.9 Heart failure, unspecified
CPT/HCPCS: A6214

== ENCOUNTER 2025-05-22 00:15 | Day surgery (SDC) | payer MEDICARE ==
[2025-05-22] MEDS ORDERED: Lidocaine HCl 4% Cream 5 GM ONE (08:24)
== END 2025-05-22 23:00 | disposition home or self-care (01) ==
LOC: WOUND 00:15
DX: E11.621 Type 2 diabetes mellitus with foot ulcer (principal); L97.412 Non-pressure chronic ulcer of right heel and midfoot with fat layer exposed; I11.0 Hypertensive heart disease with heart failure; I50.9 Heart failure, unspecified; E11.51 Type 2 diabetes mellitus with diabetic peripheral angiopathy without gangrene; I87.2 Venous insufficiency (chronic) (peripheral); J44.9 Chronic obstructive pulmonary disease, unspecified; Z88.0 Allergy status to penicillin; Z87.891 Personal history of nicotine dependence
CPT/HCPCS: A6196; A6213; A9270; G0463

== ENCOUNTER 2025-05-29 02:56 | Day surgery (SDC) | payer MEDICARE ==
[2025-05-29] MEDS ORDERED: Lidocaine HCl 4% Cream 5 GM ONE (15:56)
== END 2025-05-29 23:00 | disposition home or self-care (01) ==
LOC: WOUND 02:56
DX: E11.621 Type 2 diabetes mellitus with foot ulcer (principal); L97.412 Non-pressure chronic ulcer of right heel and midfoot with fat layer exposed; L03.116 Cellulitis of left lower limb; E11.51 Type 2 diabetes mellitus with diabetic peripheral angiopathy without gangrene; I11.0 Hypertensive heart disease with heart failure; I50.9 Heart failure, unspecified
CPT/HCPCS: A6196; A6213; A9270; G0463

== ENCOUNTER 2025-06-03 01:16 | Day surgery (SDC) | payer MEDICARE ==
[2025-06-03] MEDS ORDERED: Lidocaine HCl 4% Cream 5 GM ONE (15:45)
== END 2025-06-03 23:00 | disposition home or self-care (01) ==
LOC: WOUND 01:16
DX: E11.621 Type 2 diabetes mellitus with foot ulcer (principal); L97.412 Non-pressure chronic ulcer of right heel and midfoot with fat layer exposed; E11.51 Type 2 diabetes mellitus with diabetic peripheral angiopathy without gangrene; I87.2 Venous insufficiency (chronic) (peripheral); I11.0 Hypertensive heart disease with heart failure; I50.9 Heart failure, unspecified
CPT/HCPCS: A6196; A6213; A9270; G0463

== ENCOUNTER 2025-06-10 00:53 | Day surgery (SDC) | payer MEDICARE ==
[2025-06-10] MEDS ORDERED: Lidocaine HCl 4% Cream 5 GM ONE (15:29)
== END 2025-06-10 23:00 | disposition home or self-care (01) ==
LOC: WOUND 00:53
DX: E11.621 Type 2 diabetes mellitus with foot ulcer (principal); L97.412 Non-pressure chronic ulcer of right heel and midfoot with fat layer exposed; I11.0 Hypertensive heart disease with heart failure; I50.9 Heart failure, unspecified; E11.51 Type 2 diabetes mellitus with diabetic peripheral angiopathy without gangrene; I87.2 Venous insufficiency (chronic) (peripheral)
CPT/HCPCS: A6196; A6213; A9270; G0463

== ENCOUNTER 2025-06-19 00:11 | Day surgery (SDC) | payer MEDICARE | END 2025-06-19 23:00 | disposition home or self-care (01) | LOC: WOUND 00:11 | DX: E11.621 Type 2 diabetes mellitus with foot ulcer (principal); L97.412 Non-pressure chronic ulcer of right heel and midfoot with fat layer exposed; E11.51 Type 2 diabetes mellitus with diabetic peripheral angiopathy without gangrene; I87.2 Venous insufficiency (chronic) (peripheral); I11.0 Hypertensive heart disease with heart failure; I50.9 Heart failure, unspecified | CPT/HCPCS: A6196; A6213; G0463 ==

== ENCOUNTER 2025-06-26 06:19 | Day surgery (SDC) | payer MEDICARE | END 2025-06-26 23:00 | disposition home or self-care (01) | LOC: HBO 06:19 → WOUND 15:15 → HBO 16:40 | DX: E11.621 Type 2 diabetes mellitus with foot ulcer (principal); L97.412 Non-pressure chronic ulcer of right heel and midfoot with fat layer exposed; I87.312 Chronic venous hypertension (idiopathic) with ulcer of left lower extremity; E11.51 Type 2 diabetes mellitus with diabetic peripheral angiopathy without gangrene; I87.2 Venous insufficiency (chronic) (peripheral); I11.0 Hypertensive heart disease with heart failure; I50.9 Heart failure, unspecified | CPT/HCPCS: G0463 ==

== ENCOUNTER 2025-07-10 00:28 | Day surgery (SDC) | payer MEDICARE | END 2025-07-10 23:27 | disposition home or self-care (01) | LOC: WOUND 00:28 | DX: E11.621 Type 2 diabetes mellitus with foot ulcer (principal); L97.412 Non-pressure chronic ulcer of right heel and midfoot with fat layer exposed; L97.822 Non-pressure chronic ulcer of other part of left lower leg with fat layer exposed; E11.622 Type 2 diabetes mellitus with other skin ulcer; I87.312 Chronic venous hypertension (idiopathic) with ulcer of left lower extremity; E11.51 Type 2 diabetes mellitus with diabetic peripheral angiopathy without gangrene; I87.2 Venous insufficiency (chronic) (peripheral); I11.0 Hypertensive heart disease with heart failure; I50.9 Heart failure, unspecified; Z79.51 Long term (current) use of inhaled steroids; Z79.84 Long term (current) use of oral hypoglycemic drugs; Z79.899 Other long term (current) drug therapy | CPT/HCPCS: A6196; G0463 ==